=== PATIENT | male | born 1960 | race Caucasian/White ===

== ENCOUNTER 2017-03-23 10:14 | Emergency (ER) | payer OTHER ==
[~2017-03-23] VITALS: Ht 170.2 cm; Wt 111.1 kg
[2017-03-23 10:17] VITALS: BP 173/105
--- NOTE | 2017-03-23 10:27 | NUR ---
Patient ambulated to bed 7. RN evaluating patient at bedside.
--- NOTE | 2017-03-23 10:30 | NUR ---
Dr. Olsen evaluating patient at bedside.
--- NOTE | 2017-03-23 10:30 | NUR ---
PATIENT PRESENTS TO ED WITH C/O LEFT SIDED WEAKNESS AT ABOUT 0945AM, --- ABLE TO MOVE ALL EXTREMITIES, LIFT LEFT HAND AND LEFT LEG WITH MILD WEAKNESS VS R EXTREMITIES---FULL CLEAR SPEECH,NO FACIAL ASYMMETRY NOTED DENIES DIZINESS, DENIES N/V/D, DENIES HEAD ACHE; HX DM; RX PRE DM MEDICATION; SKIN IS PINK/WARM/DRY; AAOX4 WITH EVEN AND STEADY GAIT; LUNGS CLEAR BL; HR EVEN AND REGULAR; PT DENIES ANY FEVER, CP, SOB, OR COUGH AT THIS TIME; PATIENT STATES PAIN OF 0/10 AT THIS TIME; VSS; PATIENT POSITIONED FOR COMFORT; HOB ELEVATED; BEDRAILS UP X2; BED DOWN. ER MD MADE AWARE OF PT STATUS.
--- NOTE | 2017-03-23 10:35 | NUR ---
Called code brain.
--- NOTE | 2017-03-23 10:36 | NUR ---
Patient taken to CT scan via gurney by [facility].
[2017-03-23 10:48] LABS: BASOPHILS # (AUTO) 0.1 K/uL (0.00-0.22); BASOPHILS % (AUTO) 1.2 % (0.0-2.0); EOSINOPHILS # (AUTO) 0.1 K/uL (0-0.4); HEMATOCRIT 45.1 % (36-52); HEMOGLOBIN 15.2 g/dL (12.0-18.0); LYMPHOCYTES # (AUTO) 4.2 K/uL (2.0-11.5); LYMPHOCYTES % (AUTO) 43.8 % (20.5-51.1); MEAN CORPUSCULAR HEMOGLOBIN 29 pg (27-31); MEAN CORPUSCULAR HGB CONC 34 g/dL (33-37); MEAN CORPUSCULAR VOLUME 87 fL (80-94); MONOCYTES # (AUTO) 0.7 K/uL (0.8-1.0); MONOCYTES % (AUTO) 7.1 % (1.7-9.3); NEUTROPHILS # (AUTO) 4.5 K/uL (1.8-7.7); NEUTROPHILS % (AUTO) 46.9 % (42.2-75.2); PLATELET COUNT (AUTO) 256 K/uL (140-450); RED BLOOD CELL COUNT(AUTO) 5.16 MIL/uL (4.20-6.10); RED CELL DISTRIBUTION WIDTH 12.9 % (11.6-13.7); WHITE BLOOD COUNT (AUTO) 9.6 K/uL (4.8-10.8)
[2017-03-23 11:03] LABS: ANION GAP 14.6 (8-16); CALCIUM 8.9 mg/dL (8.5-10.1); CARBON DIOXIDE 24.5 mmol/L (21-32); POTASSIUM 4.1 mmol/L (3.5-5.1)
[2017-03-23 11:07] LABS: INR 1.1 (0.8-1.2); PROTHROMBIN TIME 10.4 secs (10.8-13.4)
[2017-03-23 11:09] LABS: ALBUMIN 3.8 g/dL (3.4-5.0); TOTAL BILIRUBIN 0.9 mg/dL (0.0-1.0); TOTAL PROTEIN, SERUM 7.9 g/dL (6.4-8.2)
--- NOTE | 2017-03-23 11:17 | NUR ---
[facility] IMAGE CONSULTANT IVETTE AT BEDSIDE FOR CHEST XRAY
[2017-03-23 11:57] LABS: APPEARANCE,URINE CLEAR (CLEAR); BILIRUBIN,URINE NEGATIVE (NEGATIVE); BLOOD, URINE NEGATIVE (NEGATIVE); COLOR,URINE YELLOW (YELLOW); LEUKOCYTE ESTERASE ,URINE NEGATIVE (NEGATIVE); NITRITE, URINE NEGATIVE (NEGATIVE); PH,URINE 5.5 (5.0-9.0); PROTEIN,URINE NEGATIVE (NEGATIVE); UGLUCOSE NEGATIVE (NEGATIVE); UROBILINOGEN,URINE 0.2 EU/dL (0.2 - 1)
--- NOTE | 2017-03-23 12:05 | NUR ---
Dr. Olsen re-evaluating patient at bedside.
[2017-03-23 12:15] LABS: BACTERIA,URINE None Seen /HPF (None Seen); RBC,URINE NONE SEEN /HPF (0-5); SQUAMOUS EPITHELIAL CELL,UR None Seen /LPF (0-3 (FEW)); WBC,URINE 0-5 (RARE) /HPF (0-5)
[2017-03-23] MEDS ORDERED: ONDANSETRON 4 MG/2 ML VIAL IVP PRN (12:15)
[2017-03-23] MEDS ORDERED: MORPHINE SULFATE 2 MG/ML SYR IVP PRN (12:15)
[2017-03-23] MEDS ORDERED: ACETAMINOPHEN 325 MG TAB PO PRN (12:15)
[2017-03-23] MEDS ORDERED: INSULIN LISPRO SLIDING SCALE 100 UNITS/ML VIAL SUBQ PRN (12:20)
--- NOTE | 2017-03-23 12:37 | NUR ---
ATTEMPTED TO GIVE REPORT FELICIANO CHACON NOT READY AT THIS TIME TALKING TO THE MD WILL CALL BACK LATER
--- NOTE | 2017-03-23 12:46 | NUR ---
Dr. Chopra notified of requested Neurology consultation.
--- NOTE | 2017-03-23 13:41 | NUR ---
AAO PT EATING LUNCH BROUGHT BY SON AT BEDSIDE, NO ACUTE DISTRESS NOTED, NO C/O SOB, OR PAIN AT THIS TIME
--- NOTE | 2017-03-23 13:54 | NUR ---
Patient to be transferred to [facility]. Is being transferred due to FOR HIGHER LEVEL OF CARE TIA VS CVA . Receiving facility has accepting physician and available space. ER physician has signed transfer form. Patient or responsible republican has agreed to transfer and signed form. Patient belongings inventoried and will be sent with patient. Copy of nursing notes, lab reports, EKG, Physicians Orders and X-rays to be sent with patient. Report called to FELICIANO MARSHALL at receiving facility. ambulance service has been called for transfer. ETA is 10 MINUTES.
[2017-03-23 14:06] VITALS: BP 148/100
--- NOTE | 2017-03-23 14:06 | NUR ---
PT TAKEN BY EMR VIA [facility] BY FIRST PRESS OPERATOR REHANA NELSON
[2017-03-23] MEDS ORDERED: BLOOD GLUCOSE MONITORING 1 DEV DEV FS SCH (16:30)
[2017-03-24] MEDS ORDERED: ENOXAPARIN 40 MG/0.4 ML SYR SUBQ SCH (09:00)
[2017-03-24] MEDS ORDERED: ASPIRIN 81 MG TAB.CHEW PO SCH (09:00)
[2017-03-24] MEDS ORDERED: ATORVASTATIN 20 MG TAB PO SCH (09:00)
== END 2017-03-23 14:06 | disposition short-term general hospital (02) ==
LOC: MED 10:14 → UNDOADMIN 12:41 → MTU 12:41 → MED 14:06
DX: G45.9 Transient cerebral ischemic attack, unspecified (principal); E11.9 Type 2 diabetes mellitus without complications
CPT/HCPCS: 36415; 70450; 71010; 80053; 81001; 82948; 84484; 85025; 85610; 85730; 93005; 99285; J1815; Q0092

== ENCOUNTER 2018-04-19 15:27 | Inpatient (IN) | payer OTHER ==
[~2018-04-19] VITALS: Ht 170.2 cm; Wt 113.4 kg
[2018-04-19 15:32] VITALS: BP 140/87
--- NOTE | 2018-04-19 15:40 | NUR ---
PT AMBULATES TO BED 5
--- NOTE | 2018-04-19 15:55 | NUR ---
INTERMITTENT NON RADIATING CHEST PAIN AND PALPITATIONS X 4 DAYS, STATES HE'S TAKING LIQUID TUMERIC AND HAS NOTICED LEFT ANTERIOR CP SINCE THEN. DENIES FEVERS.CHILLS. . DENIES N/V/D; SKIN IS PINK/WARM/DRY; AAOX4 WITH EVEN AND STEADY GAIT; LUNGS CLEAR BL; HR EVEN AND REGULAR; PT DENIES ANY FEVER, SOB, OR COUGH AT THIS TIME; PATIENT STATES PAIN OF 4/10 AT THIS TIME; VSS; PATIENT POSITIONED FOR COMFORT; HOB ELEVATED; BEDRAILS UP X2; BED DOWN. ER MD MADE AWARE OF PT STATUS.
[2018-04-19] MEDS ORDERED: ASPIRIN 81 MG TAB.CHEW PO ONE (16:20)
[2018-04-19 16:37] LABS: BASOPHILS # (AUTO) 0.1 K/uL (0.00-0.22); BASOPHILS % (AUTO) 0.6 % (0.0-2.0); EOSINOPHILS # (AUTO) 0.1 K/uL (0-0.4); EOSINOPHILS % (AUTO) 0.6 % (0.0-4.0); HEMATOCRIT 41.6 % (36-52); LYMPHOCYTES # (AUTO) 3.9 K/uL (2.0-11.5); LYMPHOCYTES % (AUTO) 42.2 % (20.5-51.1); MEAN CORPUSCULAR HEMOGLOBIN 30 pg (27-31); MEAN CORPUSCULAR HGB CONC 34 g/dL (33-37); MONOCYTES # (AUTO) 0.7 K/uL (0.8-1.0); MONOCYTES % (AUTO) 7.2 % (1.7-9.3); NEUTROPHILS # (AUTO) 4.5 K/uL (1.8-7.7); NEUTROPHILS % (AUTO) 49.4 % (42.2-75.2); PLATELET COUNT (AUTO) 265 K/uL (140-450); RED BLOOD CELL COUNT(AUTO) 4.67 MIL/uL (4.20-6.10); WHITE BLOOD COUNT (AUTO) 9.2 K/uL (4.8-10.8)
[2018-04-19 16:58] LABS: ANION GAP 11.7 (8-16); CARBON DIOXIDE 25.6 mmol/L (21-32); CREATININE 0.9 mg/dL (0.7-1.3); POTASSIUM 4.3 mmol/L (3.5-5.1)
[2018-04-19 17:03] LABS: ALBUMIN 3.7 g/dL (3.4-5.0); TOTAL BILIRUBIN 0.4 mg/dL (0.0-1.0)
[2018-04-19] MEDS ORDERED: NITROGLYCERIN 2% 1 GM PKT TP ONE (17:25)
[2018-04-19] MEDS ORDERED: MORPHINE SULFATE 4 MG/ML SYR IVP PRN (17:35)
[2018-04-19] MEDS ORDERED: DEXTROSE 50% 50 ML SYR IVP PRN (17:35)
[2018-04-19] MEDS ORDERED: HYDROcodone/APAP 5/325 MG 1 TAB TAB PO PRN (17:35)
[2018-04-19] MEDS ORDERED: ONDANSETRON 4 MG/2 ML VIAL IVP PRN (17:35)
[2018-04-19] MEDS ORDERED: INSULIN LISPRO SLIDING SCALE 100 UNITS/ML VIAL SUBQ PRN (17:35)
[2018-04-19 18:03] LABS: CREATINE KINASE MB 3.8 ng/mL (0-3.6)
--- NOTE | 2018-04-19 18:10 | NUR ---
TRANFERRED PT TO TELE 122A BY [facility], REPORT GIVEN TO LYNDSEY WIGGINS. PT AWAKE, ALERT, NO S/S OF RESPIRATORY DISTRESS NOTED. VITALS STABLE AT THIS MOMENT.ABLE TO WALK.
--- NOTE | 2018-04-19 18:10 | NUR ---
RECEIVED PT VIA NANCYRLUISITO FROM ER NURSE, PT IS AWAKE AND WITH A LEFT HAND G.[address], AND HAS A LEFT UPPER CHEST NITRO BID IN PLACE, IS AT THE BEDSIDE. SIDE RAILS ARE UP AND CALL LIGHT WITHIN REACH. NO SIGN OF DISTRESS NOTED AND WILL CONTINUE TO MONITOR.
--- NOTE | 2018-04-19 18:20 | NUR ---
PT IS AWAKE WITH ON THE BEDSIDE, VITAL SIGNS TAKEN AND NO SIGN OF DISTRESS NOTED. CALL LIGHT WITHIN REACH AND WILL CONTINUE TO MONITOR.
--- NOTE | 2018-04-19 18:40 | NUR ---
PT IS AWAKE AND MRSA SWAB WAS DONE AND SENT TO THE LAB. NO SIGN OF DISTRESS NOTED. WILL MONITOR.
--- NOTE | 2018-04-19 19:30 | NUR ---
ENDORSED PT TO TEAMCENTER SOLUTION ARCHITECT NURSEMARIZA FOR ADMISSION ROUTINES AND FOR CONTINUITY OF CARE. PT IS STABLE AT THIS TIME.
--- NOTE | 2018-04-19 19:31 | NUR ---
RECEIVED REPORT FROM DAY SHIFT NURSE ALFREDO-RN. AOX4-SWEDISH SPEAKING WITH AT BEDSIDE. , ON ROOM AIR WITH IV LEFT HAND #20G SALINE LOCK IN PLACE, AND HAS A LEFT UPPER CHEST NITRO BID IN PLACE. SKIN INTACT WITH SOME BRUISING ON KNEES AND ARMS DUE TO WORK RELATED INCIDENT. NO S/S OF RESPIRATORY DISTRESS OR DISCOMFORT NOTED AT THIS TIME. DISCUSSED PLAN OF CARE AND PT VERBALIZED UNDERSTANDING. WHITE BOARD UPDATED. BED IN LOWEST POSITION, SIDE RAILS ARE UP, BED BREAKS LOCKED. BED SIDE TABLE AND CALL LIGHT WITHIN REACH. WILL CONTINUE TO MONITOR.
[2018-04-19 20:00] VITALS: BP 130/71
--- NOTE | 2018-04-19 20:15 | NUR ---
BLOOD GLUCOSE 73. PT SON ARRIVED WITH PT DINNER AND IS ABOUT TO EAT. WILL CONTINUE TO MONITOR.
--- NOTE | 2018-04-19 20:30 | NUR ---
DR. MENDOZA IN TO SEE PT AND DISCUSSED PLAN OF CARE. PT DUE TO HAVE ECHO AND EKG TOMORROW 04/20/18. PT VERBALIZED UNDERSTANDING.
[2018-04-19] MEDS: BLOOD GLUCOSE MONITORING 1 DEV DEV FS SCH (20:35)
[2018-04-19] MEDS: METOPROLOL 25 MG TAB PO SCH (20:51)
--- NOTE | 2018-04-19 20:51 | NUR ---
VITAL SIGNS TAKEN, SCHEDULED MEDICATION GIVEN AND TOLERATED WELL. WILL CONTINUE TO MONITOR.
[2018-04-19] MEDS ORDERED: ATORVASTATIN 20 MG TAB PO SCH (21:00)
[2018-04-19] MEDS ORDERED: ENOXAPARIN 40 MG/0.4 ML SYR SUBQ SCH (21:00)
[2018-04-19] MEDS ORDERED: METOPROLOL 25 MG TAB PO ONE (21:00)
--- NOTE | 2018-04-19 22:21 | NUR ---
PT SITTING IN CHAIR NEXT TO BED WATCHING TV ON CELLPHONE. NO S/S OF RESPIRATORY DISTRESS OR DISCOMFORT NOTED. WILL CONTINUE TO MONITOR.
[2018-04-20] VITALS: BP 123/74
--- NOTE | 2018-04-20 00:12 | NUR ---
VITAL SIGNS TAKEN AND TOLERATED WELL. SCD'S IN PLACE. PT RESTING IN BED. NO S/S OF RESPIRATORY DISTRESS OR DISCOMFORT NOTED AT THIS TIME. WILL CONTINUE TO MONITOR.
--- NOTE | 2018-04-20 01:41 | NUR ---
RECEIVED CRITICAL VALUE TROPONIN 1.[address] TONY
[2018-04-20] MEDS ORDERED: hePARIN / DEXT 5% PREMIX 250 ML IV SCH (01:50)
[2018-04-20] MEDS ORDERED: HEPARIN PER PHARMACY MC PRN ×2 (01:50→01:55)
--- NOTE | 2018-04-20 01:50 | NUR ---
DR. TONY'S ONCALL IS DR. MELINDA CHILDERS AND WAS GIVEN ORDERS TO START HEPARIN DRIP. WILL ALSO CALL PARRIS CARDOZA IN REGARDS TO THE TROPONIN RESULTS.
[2018-04-20] MEDS ORDERED: hePARIN / DEXT 5% PREMIX 250 ML IV STA (01:53)
--- NOTE | 2018-04-20 02:10 | NUR ---
PAGED DR. MENDOZA. WAITING ON HIS CALL BACK.
[2018-04-20] MEDS: hePARIN / DEXT 5% PREMIX 250 ML IV SCH ×3 (02:37→16:09)
--- NOTE | 2018-04-20 02:40 | NUR ---
HEPARIN DRIP STARTED, BOLOS GIVEN AND WILL ORDER PTT FOR 0830 PROTOCOL. WILL CONTINUE TO MONITOR.
[2018-04-20 04:00] VITALS: BP 127/78
--- NOTE | 2018-04-20 04:00 | NUR ---
PT RESTING AT THIS TIME. VITAL SIGNS TAKEN AND TOLERATED WELL. NO S/S OF RESPIRATORY DISTRESS OR DISCOMFORT NOTED AT THIS TIME. WILL CONTINUE TO MONITOR.
[2018-04-20] MEDS: BLOOD GLUCOSE MONITORING 1 DEV DEV FS SCH ×4 (05:43→20:38)
--- NOTE | 2018-04-20 06:12 | NUR ---
PT AWAKE RESTING IN BED. NO S/S OF RESPIRATORY DISTRESS OR DISCOMFORT AT THIS TIME. BLOOD GLUCOSE 101. NO INSULIN NEEDED. WILL CONTINUE TO MONITOR.
[2018-04-20 06:45] LABS: BASOPHILS % (AUTO) 0.3 % (0.0-2.0); EOSINOPHILS # (AUTO) 0.1 K/uL (0-0.4); EOSINOPHILS % (AUTO) 0.7 % (0.0-4.0); HEMATOCRIT 39.4 % (36-52); HEMOGLOBIN 13.2 g/dL (12.0-18.0); LYMPHOCYTES # (AUTO) 4.5 K/uL (2.0-11.5); LYMPHOCYTES % (AUTO) 43.5 % (20.5-51.1); MEAN CORPUSCULAR HEMOGLOBIN 30 pg (27-31); MEAN CORPUSCULAR HGB CONC 34 g/dL (33-37); MEAN CORPUSCULAR VOLUME 88.3 fL (80-94); MONOCYTES # (AUTO) 0.7 K/uL (0.8-1.0); MONOCYTES % (AUTO) 6.4 % (1.7-9.3); NEUTROPHILS % (AUTO) 49.1 % (42.2-75.2); PLATELET COUNT (AUTO) 262 K/uL (140-450); RED BLOOD CELL COUNT(AUTO) 4.46 MIL/uL (4.20-6.10); RED CELL DISTRIBUTION WIDTH 13.8 % (11.6-13.7); WHITE BLOOD COUNT (AUTO) 10.2 K/uL (4.8-10.8)
[2018-04-20 07:03] LABS: ALBUMIN 3.5 g/dL (3.4-5.0); ANION GAP 11.4 (8-16); CARBON DIOXIDE 26.5 mmol/L (21-32); CREATININE 0.9 mg/dL (0.7-1.3); MAGNESIUM 1.7 mg/dL (1.8-2.4); PHOSPHORUS 3.5 mg/dL (2.5-4.9); POTASSIUM 3.9 mmol/L (3.5-5.1); TOTAL BILIRUBIN 0.5 mg/dL (0.0-1.0)
--- NOTE | 2018-04-20 07:08 | NUR ---
ENDORSED PT CARE TO DAY SHIFT NURSE JESSICA-RN FOR CONTINUITY OF CARE.
--- NOTE | 2018-04-20 07:15 | NUR ---
REPORT RECEIVED FROM [employer] SALES SUPERVISOR NURSE MARIZA, PT AAOX4, RESP EVEN UNLABORED, SKIN WARM DRY, COLOR WNL, PT DENIES PAIN OR SOB, DENIES ANY NEEDS, PLAN OF CARE REVIEWED, BED LOCKED IN LOW POSITION, SIDE RAILS UP, CALL SORIANO WITHIN REACH, WILL CONTINUE TO MONITOR. Addendum: 04/20/18 at 0741 by Caty Jones RN PT ON HEPARIN DRIP AT 1000 UNITS/HR, NEXT PTT DRAW AT 0800. NO ACTIVE BLEEDING OR BRUISING NOTED.
[2018-04-20] MEDS ORDERED: GLYBURIDE METFORMIN PO (07:56)
[2018-04-20 08:00] VITALS: BP 113/69
[2018-04-20] MEDS: METOPROLOL 25 MG TAB PO SCH ×2 (08:57→20:39)
[2018-04-20] MEDS ORDERED: ASPIRIN 81 MG TAB.CHEW PO SCH (09:00)
--- NOTE | 2018-04-20 09:49 | NUR ---
PTT RESULTED, 47.4, NO CHANGE IN HEPARIN RATE PER PROTOCOL. Addendum: 04/20/18 at 1126 by Caty Jones RN HEPARIN CONTINUES AT 1000 UNITS / HR.
--- NOTE | 2018-04-20 11:15 | NUR ---
DR Marcos MENDOZA CALLED ON THE PHONE, PT CONDITION REPORTED, NO CHANGES IN ORDER, DR Marcos MENDOZA TO COME SEE PT LATER.
--- NOTE | 2018-04-20 11:55 | NUR ---
BEDSIDE GLUCOSE 200, PT REFUSES INSULIN, PT STATES HE HAS "BEEN ON PILLS FOR DIABETES FOR 10 YEARS NEVER NEEDED INSULIN" PT DOES NOT WANT TO START INSULIN NOW, WILL NOTIFY
[2018-04-20 12:00] VITALS: BP 126/78
--- NOTE | 2018-04-20 12:05 | NUR ---
DR TONY PAGED AND CALLED BACK, TELEPHONE ORDER FOR GLIPIZIDE 10MG PO QD RECEIVED.
[2018-04-20] MEDS ORDERED: glipiZIDE 10 MG TAB PO SCH (12:15)
--- NOTE | 2018-04-20 12:57 | NUR ---
DR Marcos MENDOZA CALLED WITH TELEPHONE ORDER, SOCIAL SERVICE REQUEST FOR TRANSFER TO [facility] FOR CARDIAC CATH SCHEDULED AT 11:30 04/[address] Marcos TONY ACCEPTING PHYSICIAN AT [facility].
--- NOTE | 2018-04-20 13:27 | NUR ---
NOTIFIED [employer] PRODUCT MANAGER REGARDING CARDIAC CATH SCHEDULED BY DR. MENDOZA TOMORROW. CALLED [facility] TO CONFIRM AND SPOKE TO ALISSON DASILVALEAD SIMULATION MODELING ENGINEER. SHE SAID SHE WILL CALL ME BACK TO VERIFY.
--- NOTE | 2018-04-20 14:08 | NUR ---
20G PIV STARTED TO LEFT AC IN PREPARATION FOR CT ANGIO CHEST WITH/WITHOUT CONTRAST, PT EDEN WELL.
[2018-04-20] MEDS: NACL 0.9% 1,000 ML IV SCH (15:00)
--- NOTE | 2018-04-20 15:09 | NUR ---
PTT RESULTED 37.5, PER PROTOCOL, HEPARIN BOLUS DOES 2500 UNIT GIVEN, CONTINUOUS INFUSION INCREASED TO 1200 UNIT/HR. PT HAS NO S/S OF BLEEDING, NO ACUTE BRUISING, DENIES CHEST PAIN OR SHORT OF BREATH, TALKING WITH FAMILY IN NAD, WILL CONTINUE TO [place].
--- NOTE | 2018-04-20 15:59 | NUR ---
BROWN FROM [facility] CALLED AND SHE SAID TO TRANSFER PATIENT TMW BETWEEN 7-8 AM. FAXED FACESHEET TO [phone]. SHE SAID TO CALL INFORMATION TECHNOLOGY MANAGER AT [phone] AROUND 5AM FOR A BED.
[2018-04-20 16:00] VITALS: BP 132/88
--- NOTE | 2018-04-20 16:01 | NUR ---
PT TAKEN TO RADIOLOGY FOR CTA CHEST IN WHEELCHAIR
--- NOTE | 2018-04-20 19:00 | NUR ---
DR EMERY AT BEDSIDE, PLAN OF CARE EXPLAINED TO PT AND SON, , THEY VERBALIZED UNDERSTANDING AND AGREES TO TRANSFER TO [facility] FOR CARDIAC CATH TOMORROW. PT DENIES CHEST PAIN, DENIES SOB, HEPARIN DRIP CONTINUES AT 1200 UNITS/HR, NO S/S OF BLEEDING NOTED.
--- NOTE | 2018-04-20 19:25 | NUR ---
REPORT GIVEN TO DEVORA WIGGINS, PT IN STABLE CONDITION. HEPARIN DRIP VERIFIED WITH DEVORA. CONTINUES AT 1200 UNITS/HR.
--- NOTE | 2018-04-20 19:26 | NUR ---
REPORT RECEIVED FROM AM NURSE. PT IN STABLE CONDITION. WILL CONTINUE TO MONITOR.
[2018-04-20 20:00] VITALS: BP 149/95
--- NOTE | 2018-04-20 20:15 | NUR ---
SHIFT ASSESSMENT COMPLETE. EYES 3MM TO 2MM BRISK PERRL. AAOX3. HEART SOUNDS S1 S2 NORMAL. LUNGS CLEAR BILATERALLY. BOWEL SOUNDS ACTIVE X4 QUADRANTS. SKIN WARM, DRY, AND INTACT. CAP REFILL < 3S. VS STABLE PT NOT IN ANY ACUTE DISTRESS. BED LOCKED IN LOW POSITION. CALL SORIANO WITHIN REACH. WILL CONTINUE TO MONITOR.
--- NOTE | 2018-04-20 20:45 | NUR ---
PM MEDS GIVEN. PT TOLERATED WELL.
[2018-04-20] MEDS ORDERED: ATORVASTATIN 20 MG TAB PO SCH (21:00)
[2018-04-20 21:57] LABS: CREATINE KINASE MB 4.2 ng/mL (0-3.6)
--- NOTE | 2018-04-20 22:17 | NUR ---
LAB CALLED TO REPORT A CRITICAL VALUE TROPONIN 1.308. VALUE IS TRENDING DOWN. MD WAS NOT NOTIFIED.
[2018-04-21] VITALS: BP 150/88
[2018-04-21] MEDS: hePARIN / DEXT 5% PREMIX 250 ML IV SCH (00:18)
--- NOTE | 2018-04-21 02:20 | NUR ---
PT AWAKE DUE TO IV PUMP BEEPING. NEW NS BAG ADMINISTERED. WILL CONTINUE TO MONITOR.
[2018-04-21] MEDS: NACL 0.9% 1,000 ML IV SCH (02:25)
[2018-04-21 03:36] LABS: ALBUMIN 3.5 g/dL (3.4-5.0); ANION GAP 10.4 (8-16); CARBON DIOXIDE 28.4 mmol/L (21-32); CREATININE 0.9 mg/dL (0.7-1.3); POTASSIUM 3.8 mmol/L (3.5-5.1); TOTAL BILIRUBIN 0.4 mg/dL (0.0-1.0)
[2018-04-21 03:46] LABS: BASOPHILS # (AUTO) 0.1 K/uL (0.00-0.22); BASOPHILS % (AUTO) 0.8 % (0.0-2.0); EOSINOPHILS # (AUTO) 0.1 K/uL (0-0.4); HEMATOCRIT 39.9 % (36-52); HEMOGLOBIN 13.4 g/dL (12.0-18.0); LYMPHOCYTES # (AUTO) 5.4 K/uL (2.0-11.5); MEAN CORPUSCULAR HEMOGLOBIN 30 pg (27-31); MEAN CORPUSCULAR HGB CONC 33 g/dL (33-37); MEAN CORPUSCULAR VOLUME 88.8 fL (80-94); MONOCYTES # (AUTO) 0.7 K/uL (0.8-1.0); MONOCYTES % (AUTO) 7.8 % (1.7-9.3); NEUTROPHILS # (AUTO) 3.3 K/uL (1.8-7.7); NEUTROPHILS % (AUTO) 34.4 % (42.2-75.2); PLATELET COUNT (AUTO) 230 K/uL (140-450); RED CELL DISTRIBUTION WIDTH 13.8 % (11.6-13.7); WHITE BLOOD COUNT (AUTO) 9.6 K/uL (4.8-10.8)
[2018-04-21 04:00] VITALS: BP 140/86
--- NOTE | 2018-04-21 05:00 | NUR ---
PT AWAKE BUT AROUSABLE. PT NOT IN ANY ACUTE DISTRESS. WILL CONTINUE TO MONITOR.
--- NOTE | 2018-04-21 05:15 | NUR ---
REPORT GIVEN TO RACHAEL WIGGINS AT [facility] @ [phone]. PT WILL GO TO BED 341B. PICKUP SCHEDULED FOR 0700.
[2018-04-21] MEDS: BLOOD GLUCOSE MONITORING 1 DEV DEV FS SCH (06:06)
[2018-04-21 06:13] VITALS: BP 140/86
[2018-04-21] MEDS ORDERED: glipiZIDE 10 MG TAB PO SCH (06:30)
--- NOTE | 2018-04-21 06:45 | NUR ---
HEPARIN DRIP DC AT 0645. PT PREPPED FOR TRANSFER TO [facility].
--- NOTE | 2018-04-21 07:00 | NUR ---
REPORT GIVEN TO [facility]. ALL PAPERWORK SIGNED BY PT.
--- NOTE | 2018-04-22 07:37 | NUR ---
RETRO ER REPORT, H&P, CONSULT AND PROGRESS NOTE FAXED TO [facility] [phone] PHONE [facility] [phone] NO DISCHARGE SUMMARY.
== END 2018-04-21 07:05 | disposition short-term general hospital (02) | DRG 190 ==
LOC: MED 15:27 → MTU 17:42
PROVIDERS: ADMIT Hospitalist; ATTEND Hospitalist
DX: I21.4 Non-ST elevation (NSTEMI) myocardial infarction (principal); E11.9 Type 2 diabetes mellitus without complications; I10 Essential (primary) hypertension; I25.119 Atherosclerotic heart disease of native coronary artery with unspecified angina pectoris; E78.5 Hyperlipidemia, unspecified; Z88.1 Allergy status to other antibiotic agents; E78.00 Pure hypercholesterolemia, unspecified
CPT/HCPCS: 36415; 71045; 71275; 80053; 82550; 82553; 82948; 83690; 83735; 83880; 84100; 84484; 85025; 85730; 87081; 93005; 99285; J1644; J1815; J7030; Q0092; Q9967